=== PATIENT | male | born 1960 | race Hispanic/Latino ===

== ENCOUNTER → 2025-05-28 | Outpatient (CLI) | payer MEDICARE ==
--- NOTE | 2025-05-29 07:04 | HMCIMG ---
EXAMINATION: ULTRASOUND OF THE ABDOMEN WITH DUPLEX SCAN. CLINICAL HISTORY: Hepatic fibrosis. COMPARISON: None. TECHNIQUE: Real-time grayscale ultrasound images of the abdomen. In addition, color Doppler is medically necessary to perform in order to evaluate vascularity and blood flow. FINDINGS: Liver: Bulky in caliber, the right hepatic lobe measures 20.3 cm in the craniocaudal dimension. There is increased echogenicity of the hepatic parenchyma. There is no focal hepatic abnormality or intrahepatic biliary ductal dilatation. The main portal vein measures 1.2 cm. Appropriate hepatopetal flow within the hepatic arteries and portal veins, and hepatofugal flow within the hepatic veins. Velocities in portal, and splenic veins are normal. Doppler indices are as follow: Main portal vein: 19 cm/s Right hepatic vein: 18 cm/s Mid hepatic vein: 22 cm/s Left hepatic vein: 24 cm/s Splenic vein: 19 cm/s at pancreatic body level. Hepatic artery: 75 cm/s and RI 0.68 Gallbladder: Within normal limits with normal wall thickness (0.3 cm). No hyperemia or pericholecystic free fluid. There is no cholelithiasis. Common bile duct is normal in caliber, measuring 0.5 cm. Spleen is normal in caliber and measures 10.1 x 2.6 x 3.1 cm in craniocaudal, AP and transverse dimensions respectively. No focal lesions. Pancreas: Head and body appear normal in caliber and echotexture. No calcification or dilated pancreatic duct. Tail is obscured by overlying bowel gas. The kidneys are normal in caliber, the right kidney measures 11.5 x 4.8 x 4.5 cm and the left kidney measures 11.0 x 6.0 x 5.1 cm in its craniocaudal, AP and transverse dimensions respectively. There is normal renal cortical thickness and cortical echogenicity. There is no renal calculus or hydronephrosis bilaterally. Visualized aspects of the abdominal aorta and inferior vena cava are unremarkable. IMPRESSION: Hepatomegaly with hepatic steatosis. Normal Doppler of abdomen. /[place]
== END | disposition home or self-care (01) ==
LOC: RAH 08:40
PROVIDERS: ATTEND Internal Medicine
DX: K74.02 Hepatic fibrosis, advanced fibrosis (principal); R16.0 Hepatomegaly, not elsewhere classified; K76.0 Fatty (change of) liver, not elsewhere classified
CPT/HCPCS: 76700; 93975